=== PATIENT | female | born 2000 | race Caucasian/White ===

== ENCOUNTER 2019-01-03 18:44 | Emergency (ER) | payer BC ==
[~2019-01-03] VITALS: Ht 165.1 cm; Wt 79.4 kg
[2019-01-03 19:17] VITALS: BP 161/79
[2019-01-03] MEDS ORDERED: ACETAMINOPHEN 500 MG TABLET PO ONE (19:45)
[2019-01-03] MEDS ORDERED: IBUPROFEN 400 MG TABLET. PO ONE (19:45)
[2019-01-03 19:53] LABS: BILIRUBIN,URINE NEGATIVE (NEG); CLARITY,URINE CLEAR; COLOR,URINE YELLOW; NITRITE,URINE NEGATIVE (NEG); PH,URINE 6.5; PROTEIN,URINE 100 mg/dL (NEG-TRACE)
[2019-01-03 19:59] LABS: BACTERIA,URINE FEW /HPF (0-FEW); SQUAMOUS EPITHELIAL CELL,UR MOD /LPF
[2019-01-03] MEDS ORDERED: IBUPROFEN 200 MG TABLET. PO ONE (21:30)
[2019-01-03] MEDS ORDERED: DOXY100C2 PO (21:56)
--- NOTE | 2019-01-03 21:56 | PHYS DOC ---
Past Medical History Past Medical History: No Pertinent History (ARAVIND ARTEAGA APRN) Past Surgical History: Other Additional Past Surgical Histo: WISDOM (ARAVIND ARTEAGA APRN) Alcohol Use: None Drug Use: None (ARAVIND ARTEAGA APRN) Adult General Chief Complaint Chief Complaint: FEVER HPI HPI Patient is a 18 year old female who presents to the emergency department with complaints of a fever, chills, body aches, shortness of breath, and painful deep inspirations for the last 3 days. The patient describes the discomfort in her chest as pressure. She denies any abdominal pain, nausea, vomiting, diarrhea, back pain, ear pain, or sore throat. She currently rates her pain a 2 out of 10 on the pain scale and denies any alleviating factors. (ARAVIND ARTEAGA APRN) Review of Systems Review of Systems Constitutional:see history of present illness Eyes: Denies change in visual acuity, redness, or eye pain [] HENT: Denies nasal congestion or sore throat [] Respiratory: see history of present illness Cardiovascular: No additional information not addressed in HPI [] GI: Denies abdominal pain, nausea, vomiting, or diarrhea [] : Denies dysuria or hematuria [] Musculoskeletal: Reports generalized body aches, history of present illness Integument: Denies rash or skin lesions [] Neurologic: Denies headache, focal weakness or sensory changes [] Complete systems were reviewed and found to be within normal limits, except as documented in this note. (ARAVIND ARTEAGA APRN) Current Medications Current Medications Current Medications Medications (Trade) Dose Ordered Sig/Mckenna Start Time Stop Time Status Last Admin Dose Admin Acetaminophen (Tylenol) 1,000 mg 1X ONCE 01/03/19 19:45 01/03/19 19:46 DC 01/03/19 19:45 1,000 MG Ibuprofen (Motrin) 600 mg 1X ONCE 01/03/19 21:30 01/03/19 21:31 DC 01/03/19 21:28 600 MG (BENNETT CARTWRIGHT MD) Allergies Allergies Allergies Coded Allergies Type Severity Reaction Last Updated Verified No Known Drug Allergies 01/03/19 No (BENNETT CARTWRIGHT MD) Physical Exam Physical Exam Constitutional: Well developed, well nourished, no acute distress, non-toxic appearance. [] HENT: Normocephalic, atraumatic, bilateral external ears normal, bilateral TMs normal, posterior pharynx normal, oropharynx moist, no oral exudates, nose normal. [] Eyes: conjunctiva normal, no discharge. [] Neck: Normal range of motion, no tenderness, supple, no stridor. [] Cardiovascular:Heart rate tachycardiac rhythm, no murmur [] Lungs & Thorax: Bilateral breath sounds clear to auscultation in upper lobes, diminished in RLL, clear in LLL [] Abdomen: soft, no tenderness, no masses, no pulsatile masses. [] Skin: Warm, dry, no erythema, no rash. [] Back: No tenderness, no CVA tenderness. [] Extremities: No cyanosis, no clubbing, ROM intact, no edema. [] Neurologic: Alert and oriented X 3, no focal deficits noted. [] Psychologic: Affect normal, judgement normal, mood normal. [] (ARAVIND ARTEAGA APRN) Current Patient Data Vital Signs Vital Signs Date Time Temp Pulse Resp B/P (MAP) Pulse Ox O2 Delivery O2 Flow Rate FiO2 01/03/19 21:10 98.7 97 16 98 Room Air 98.7 01/03/19 19:17 161/79 (106) (BENNETT CARTWRIGHT MD) Lab Values Laboratory Tests Test 01/03/19 19:40 01/03/19 19:49 Urine Collection Type Unknown Urine Color Yellow Urine Clarity Clear Urine pH 6.5 Urine Specific [place] 1.015 Urine Protein 100 mg/dL (NEG-TRACE) Urine Glucose (UA) Negative mg/dL (NEG) Urine Ketones (Stick) Negative mg/dL (NEG) Urine Blood Trace (NEG) Urine Nitrite Negative (NEG) Urine Bilirubin Negative (NEG) Urine Urobilinogen Dipstick 1.0 mg/dL (0.2 mg/dL) Urine Leukocyte Esterase Trace (NEG) Urine RBC 3-5 /HPF (0-2) Urine WBC 1-4 /HPF (0-4) Urine Squamous Epithelial Cells Mod /LPF Urine Bacteria Few /HPF (0-FEW) Urine Mucus Slight /LPF POC Urine HCG, Qualitative Hcg negative (Negative) (BENNETT CARTWRIGHT MD) EKG EKG [] (ARAVIND ARTEAGA APRN) Radiology/Procedures Radiology/Procedures CXR- RLL pneumonia read by Dr. Cartwright[] (ARAIVND ARTEAGA APRN) Course & Med Decision Making Course & Med Decision Making Pertinent Labs and Imaging studies reviewed. (See chart for details) dx: pneumonia CXR RLL pneumonia Rx for doxycycline 100 bid x7 days Follow up with PCP next week Patient verbalized an understanding of home care, medications, follow-up, and return to ED instructions and was in agreement with the plan of care. [] (ARAVIND ARTEAGA APRN) Course & Med Decision Making Staff Physician Addendum: I was working in the ER during the course of this patient's visit. I was available for consultation as needed, but I was not directly involved in the care of this patient. i reviweed cxr, given clinical hx was concerned for right base pna. abx given as above (BENNETT CARTWRIGHT MD) Dragon Disclaimer Dragon Disclaimer This electronic medical record was generated, in whole or in part, using a voice recognition dictation system. (ARAVIND ARTEAGA APRN) Departure Departure Impression: Primary Impression: Pneumonia Additional Impression: Fever Disposition: HOME, SELF-CARE Condition: STABLE Referrals: DELMAR SERRANO (PCP) Patient Instructions: Pneumonia, Adult, [id number] Additional Instructions: Fill prescription and use as directed. Alternate tylenol and ibuprofen as needed for fever. Follow up with your primary care doctor next week. Return to the ER if symptoms worsen. Scripts Doxycycline Hyclate (DOXYCYCLINE HYCLATE) 100 Mg Capsule 1 CAP PO BID, #14 CAP 0 Refills Prov: ARAVIND ARTEAGA APRN 01/03/19 Problem Qualifiers Primary Impression: Pneumonia Pneumonia type: due to unspecified organism Laterality: right Lung location: lower lobe of lung Qualified Codes: J18.1 - Lobar pneumonia, unspecified organism Additional Impression: Fever Fever type: unspecified Qualified Codes: R50.9 - Fever, unspecified ARAVIND ARTEAGA APRN Jan 03, 2019 21:56 BENNETT CARTWRIGHT MD Jan 04, 2019 05:35
--- NOTE | 2019-01-04 03:47 | RAD ---
Chest radiograph 01/03/2019 7:43 PM INDICATION: Hurts to breathe COMPARISON: None available TECHNIQUE: Frontal and lateral views of the chest are provided. FINDINGS: The cardiomediastinal silhouette is within normal limits. There are no pleural effusions. There is no pulmonary vascular congestion. There is no pneumothorax. The lungs are clear. No significant osseous abnormality is identified. IMPRESSION: No acute cardiopulmonary process. Electronically signed by: Shahrzad Ford MD (01/04/2019 3:44 AM) [id number]
== END 2019-01-03 22:02 | disposition home or self-care (01) ==
LOC: ER 18:44
DX: J18.1 Lobar pneumonia, unspecified organism (principal); M79.18 Myalgia, other site; R07.89 Other chest pain; R00.0 Tachycardia, unspecified
CPT/HCPCS: 71046; 81001; 81025; 87086; 99285-25